=== PATIENT | male | born 1955 | race Caucasian/White ===

== ENCOUNTER 2023-12-04 01:22 | Emergency (ER) | payer MEDICAID, OTHER ==
[2023-12-04 02:02] LABS: BASOPHILS ABSOLUTE AUTO 0.03 K/uL (0.00-0.10); BASOPHILS PERCENT AUTO 0.4 % (0.1-1.3); EOSINOPHILS ABSOLUTE AUTO 0.14 K/uL (0.00-0.40); HEMATOCRIT 34.8 % (38.4-49.7); HEMOGLOBIN 11.1 g/dL (12.9-16.9); IMMATURE GRAN PERCENT AUTO 0.3 % (0.0-0.7); LYMPHOCYTES ABSOLUTE AUTO 0.72 K/uL (0.8-3.3); LYMPHOCYTES PERCENT AUTO 10.3 % (11.4-47.7); MEAN CORPUSCULAR HEMOGLOBIN 30.7 pg (31.6-35.5); MEAN CORPUSCULAR HGB CONC 31.9 g/dL (31.6-35.5); MEAN CORPUSCULAR VOLUME 96.1 fL (81.4-99.0); MONOCYTES ABSOLUTE AUTO 0.73 K/uL (0.20-0.90); MONOCYTES PERCENT AUTO 10.5 % (3.3-12.6); NEUTROPHILS ABSOLUTE AUTO 5.34 K/uL (1.0-7.6); NEUTROPHILS PERCENT AUTO 76.5 % (40.0-78.1); PLATELET COUNT,PLT 181 K/uL (130-375); RED BLOOD CELL COUNT 3.62 M/uL (4.14-5.76)
[2023-12-04 02:05] LABS: IMMATURE GRAN ABSOLUTE AUTO 0.02 K/uL (0.00-0.23)
[2023-12-04 02:09] LABS: CREATININE 0.9 mg/dL (0.8-1.3); EST CRCL DRUG DOSING (CG) 90.06 mL/min
[2023-12-04 02:11] LABS: POTASSIUM,ISTAT 3.7 mmol/L (3.5-4.9)
[2023-12-04 03:38] LABS: APPEARANCE,URINE CLEAR (CLEAR); BILIRUBIN,URINE NEGATIVE (NEGATIVE); COLOR,URINE YELLOW (YELLOW); GLUCOSE,URINE NEGATIVE (NEGATIVE); KETONES,URINE NEGATIVE (NEGATIVE); LEUKOCYTE ESTERASE,URINE NEGATIVE (NEGATIVE); NITRITE,URINE NEGATIVE (NEGATIVE); OCCULT BLOOD,URINE TRACE-INTACT (NEGATIVE); PH,URINE 5.5 (5.0-8.0); PROTEIN,URINE 30 mg/dL (NEGATIVE); UROBILINOGEN,URINE 0.2 EU/dL (0.2-1.0)
[2023-12-04 03:41] LABS: AMORPHOUS SEDIMENT,URINE FEW; BACTERIA,URINE FEW; EPITHELIAL CELLS,URINE NOT SEEN; MUCUS,URINE FEW; RBC,URINE 0-5 (0-5); WBC,URINE 0-5 (0-5)
== END 2023-12-04 07:15 | disposition home or self-care (01) ==
LOC: JP.ED 01:22
DX: R59.0 Localized enlarged lymph nodes (principal)
CPT/HCPCS: 36415; 81001; 82565; 83605; 84132; 84295; 85025; 99284; 99285